=== PATIENT | female | born 1990 | race Caucasian/White ===

== ENCOUNTER 2016-10-29 19:01 | Emergency (ER) | payer OTHER ==
[~2016-10-29 19:01] MED LIST: IBUP600 PO; OXYC1SOL5 PO; PERI8.6T PO; PREN0.01 PO
[2016-10-29 20:19] LABS: BLOOD, URINE NEG (NEG); COMMENT (UR) CULT NOT INDICATED; CULTURE IF INDICATED CULT NOT INDICATED; GLUCOSE,URINE NEG (NEG); KETONE, URINE NEG (NEG); MUCUS URINE FEW /lpf (OCC); NITRITE,URINE NEG (NEG); SQUAMOUS EPITHELIAL CELL URINE <1 /hpf (0-5); URINE COLOR YELLOW (YELLW/STRAW)
--- NOTE | 2016-10-29 20:23 | PD ---
HPI Chief Complaint Abdominal cramping and spotting Travel History International Travel<30 Days: No Contact w/Intl Traveler<30Days: No Known Affected Area: No History of Present Illness HPI Denies at 20w 1d presented with abdominal cramping and spotting 2 days ago. None since. Has had one visit this . Denies urinary or bowel problems. Rh positive: A+ per records last delivery Para: 4 : 5 History Past Medical History Medical History: Denies Significant Hx Past Surgical History Surgical History: No Previous Surgery Family History Family History: Negative Social History Alcohol Use: No Tobacco Use: No Substance Abuse: No Allergies-Medications (Allergen,Severity, Reaction): Coded Allergies: No Known Allergies (Unverified , 11/24/15) Home Meds Active Scripts Oxycodone W/ Acetaminophen (Oxycodone/Acetaminophen 5-325 mg/5Ml)5 mg/325 mg Tab1 Tab PO Q4H PRN (BREAKTHROUGH PAIN) #15 TAB Prov:Helio Peter MD R3 11/25/15 Sennosides-Docusate Sodium (Cleo-Colace 8.6-50 mg)1 Tab Tab2 Tab PO Q12H PRN ( CONSTIPATION) #30 TAB Prov:Janneth Clayton MD R2 11/25/15 Ibuprofen (Motrin 600 Mg Tab)600 Mg [id number] Mg PO Q6H PRN ( CRAMPING) # 30 TAB Prov:Janneth Clayton MD R2 11/25/15 Reported Medications Multivit/Min/Fol Ac/Iron/Pren ( Vit ( Plus)) Tab1 Tab PO DAILY 11/05/14 Physical Exam AFVSS Narrative GENERAL: Well-nourished, well-developed patient. SKIN: Warm and dry. HEAD: Normocephalic and atraumatic. EYES: No scleral icterus. No injection or drainage. ENT: No nasal drainage noted. Mucous membranes pink. Airway patent. NECK: Supple, trachea midline. No JVD. CARDIOVASCULAR: Regular rate and rhythm without murmurs, gallops, or rubs. RESPIRATORY: Breath sounds equal bilaterally. No accessory muscle use. BREASTS: Bilateral exam showed no masses , no retractions, no nipple discharge. ABDOMEN/GI: Abdomen soft, non-tender, bowel sounds present, no rebound, no guarding Gravid to [-] weeks size Fundal Height: [-] GENITOURINARY: External Genitalia: intact and normal in appearance BUS glands: [-] Cervix: [-] Dilatation: [0] Effacement: [0] Station: [3] Presentation: [-] Membranes: [intact or ruptured] Uterine Contractions: [no contractions] FHT's: Category: [-] Baseline: [160s per doppler] Reactive: [-] Variability: [-] Decels: [-] EXTREMITIES: No cyanosis or edema. BACK: Nontender without obvious deformity. No CVA tenderness. NEUROLOGICAL: Awake and alert. Motor and sensory grossly within normal limits. Five out of 5 muscle strength in all muscle groups. Normal speech. Data Data Vital Signs Reviewed: Yes (AFVSS BP 117/53) Orders Urinalysis - C+S If Indicated (10/29/16 20:09) Labs Laboratory Tests Test 10/29/16 19:30 Urine Color YELLOW Urine Turbidity CLEAR Urine pH 6.0 Urine Specific [place] 1.014 Urine Protein NEG Urine Glucose (UA) NEG Urine Ketones NEG Urine Occult Blood NEG Urine Nitrite NEG Urine Bilirubin NEG Urine Urobilinogen LESS THAN 2.0 Urine Leukocyte Esterase NEG Urine RBC LESS THAN 1 Urine WBC LESS THAN 1 Urine Squamous Epithelial <1 Cells Urine Mucus FEW Microscopic Urinalysis Comment CULT NOT INDICATED MDM Interpretation(s) IUP at 20w 1d, abdominal cramping. Plan Pelvic rest until next OB visit. Return if bleeding/cramping return. All questions answered. Diagnosis Diagnosis: Primary Impression: 20 weeks gestation of Additional Impressions: Cramping affecting , antepartum Spotting affecting in second trimester Disposition: 01 DISCHARGE HOME Condition: Good Mandy Graham MD Oct 29, 2016 20:23
[2016-11-21] MEDS ORDERED: PREN1CAP7 PO (15:40)
[2016-12-03] MEDS ORDERED: METR-1 PO (10:05)
== END 2016-10-29 21:58 | disposition home or self-care (01) ==
LOC: HOBED 19:01
DX: O46.92 Antepartum hemorrhage, unspecified, second trimester (principal); Z3A.20 20 weeks gestation of pregnancy
CPT/HCPCS: 81001; 99284

== ENCOUNTER 2017-03-25 23:49 | Emergency (ER) | payer OTHER ==
[~2017-03-25 23:49] MED LIST changes: -IBUP600 PO; -OXYC1SOL5 PO; -PERI8.6T PO; -PREN0.01 PO; +PREN1CAP7 PO
[2017-03-26] MEDS ORDERED: BUTA1CAP5 PO (00:56)
--- NOTE | 2017-03-26 00:57 | PD ---
HPI Chief Complaint headache Date Seen: Mar 26, 2017 Travel History International Travel<30 Days: No Contact w/Intl Traveler<30Days: No Known Affected Area: No History of Present Illness HPI Ms. Sampson is a 26 yo at 36 weeks (JOEL 04/23 per 2nd trimester US) who presents with complaint of headache. Ms. Sampson reports that she has had a headache for the past 2 days; patient reports that it is bilateral in the area of her temples. Patient states the headaches are atypical for her; she saw evaluation since it was refractory to Tylenol which she tried at 1 PM today. Patient reports chronic vision changes but states that she needs new glasses; she does not identify new visual changes in association with headache. Patient does not report nausea, ear ringing, photophobia, fever/chills, or other association with headache. Patient does not report chest pain, shortness of breath, abdominal pain, dysuria, urinary frequency, normal bowel movements, or lower extremity swelling. Patient reports normal movement. She does not report vaginal bleeding, vaginal discharge, or loss of vaginal fluid. Patient reports unremarkable history with exception of mild iron deficiency anemia which she states does not need treatment. Patient does not report any hypertension during this gestation or prior gestations. labs not visible in EMR. Para: 4 : 5 History Past Medical History Medical History: Denies Significant Hx Obstetric History Obstetric History 4 prior full term vaginal deliveries Past Surgical History Surgical History: No Previous Surgery Family History Family History: Negative Social History Alcohol Use: No Tobacco Use: No Substance Abuse: No Allergies-Medications (Allergen,Severity, Reaction): Coded Allergies: No Known Allergies (Unverified , 12/17/16) Home Meds Active Scripts Jqsvkiegxq-Wzhldrroaavvv-Pkaexwpl 50-300-40 Mg Cap1 Cap PO Q4H PRN (HEADACHE) # 30 CAP Ref 0 Do not exceed 6 capsules/day. Prov:Lucian Saba MD R2 03/26/17 W/O Vit A W/ Fe Fumar (Citranatal [place])27-1-260 Mg Cap1 Cap PO DAILY #90 CAP Ref 0 Prov:Donta Farfan MD 11/21/16 Review of Systems General / Constitutional: No: Fever, Chills Eyes: Blurred Vision (chronic; wears corrective lenses) HENT: Headaches Cardiovascular: No: Chest Pain or Discomfort Respiratory: No: Short of Breath Gastrointestinal: No: Nausea, Vomiting, Abdominal Pain Genitourinary: No: Urgency, Dysuria Psychiatric: No: Anxiety, Depression Physical Exam BP 111/79 HR 70's RR 16-20 Narrative GENERAL: Well-nourished, well-developed patient. SKIN: Warm and dry. EYES: No scleral icterus. No injection or drainage. ENT: No nasal drainage noted. Mucous membranes pink. Airway patent. NECK: Supple, trachea midline. No JVD. CARDIOVASCULAR: Regular rate and rhythm without murmurs RESPIRATORY: Breath sounds equal bilaterally. No accessory muscle use. ABDOMEN/GI: Abdomen soft, non-tender, bowel sounds present, no rebound, no guarding Gravid EXTREMITIES: No cyanosis or edema. NEUROLOGICAL: Awake and alert. Motor and sensory grossly within normal limits. Five out of 5 muscle strength in all muscle groups. Normal speech. GENITOURINARY: External Genitalia: intact and normal in appearance Cervix: Dilatation: 1 Effacement: soft Station: -3 Presentation: V Membranes: I Uterine Contractions: occasional, irritability FHT's: Category: 1 Baseline: 120 Reactive: Y Variability: Mod Decels: None Data Data Orders Meperidine Inj (Demerol Inj) (03/26/17 01:00) Promethazine Inj (Phenergan Inj) (03/26/17 01:00) Group B Beta Strep Scrn (Gbs) (03/26/17 00:50) Vital Signs (Adult) .ON ADMISSION (03/26/17 00:50) ^ Labor Status (03/26/17 00:50) MDM Medical Record Reviewed: Yes Narrative Course / MDM Ms. Sampson is a 26 yo at 36 weeks (JOEL 04/23 per 2nd trimester US) who presents with complaint of headache -Normotensive (BP 111/49) -Category 1 rhythm -Irregular contractions/irritability -Cervix 1 cm dilated -Complaint of headache; no concerning features Plan: -Continue to monitor EFM/CTG -We'll give Demerol/Phenergan for pain -GBS obtained Updated assessment/plan: Patient continued to have reassuring rhythm and lack of regular contractions. Patient remained normotensive. No concerning etiology identified. Patient deemed stable for discharge home and follow-up with [facility]; will prescribe patient Fioricet on discharge to use when necessary for headaches. Patient will follow-up in 2-3 days with [facility] and can return to ED with worsening symptoms or presence of new concerning symptoms Diagnosis Diagnosis: Primary Impression: Headache Additional Impression: Disposition: 01 DISCHARGE HOME Condition: Stable Scripts Memozoiiql-Lztqtbgknldob-Kmptygdf 50-300-40 Mg Cap1 Cap PO Q4H PRN (HEADACHE) # 30 CAP Ref 0 Do not exceed 6 capsules/day. Prov:Lucian Saba MD R2 03/26/17 Referrals: [facility] 1 week Patient Instructions: General Instructions, Early Labor Signs (ED), Movement (ED) Departure Forms: Tests/Procedures, Work Release Enter return to work date: Mar 28, 2017 Lucian Saba MD R2 Mar 26, 2017 00:57
[2017-03-26] MEDS ORDERED: MEPERIDINE HCL 50 MG/ML VIAL IM ONE (01:00)
[2017-03-26] MEDS ORDERED: PROMETHAZINE INJ 25 MG/ML VIAL IM ONE (01:00)
== END 2017-03-26 03:00 | disposition home or self-care (01) ==
LOC: HOBED 23:49
DX: O26.892 Other specified pregnancy related conditions, second trimester (principal); R51 Headache; O99.013 Anemia complicating pregnancy, third trimester; Z3A.36 36 weeks gestation of pregnancy; Z79.899 Other long term (current) drug therapy
CPT/HCPCS: 87081; 96372; 99284; J2175; J2550

== ENCOUNTER 2017-04-12 23:25 | Emergency (ER) | payer OTHER ==
[~2017-04-12 23:25] MED LIST changes: +BUTA1CAP5 PO
[2017-04-12 23:44] VITALS: BP 137/67; PULSE 77
--- NOTE | 2017-04-13 | PD ---
HPI Chief Complaint 38 weeks and 3 days gestation Contractions Date Seen: Apr 12, 2017 Time Seen: 23:40 Travel History International Travel<30 Days: No Contact w/Intl Traveler<30Days: No Known Affected Area: No History of Present Illness HPI Pt is a 26 yo here with complaints of contractions since this afternoon. Pt had initial care at local clinic and then moved away to [place]. Pt states EDC is 04-23-2017. She has been back from [place] for past month, but not receiving care. Pt states she was seen on OB ER here 2 weeks ago, and had labs and GBS done Pt states she has been dasha this afternoon, increasing frequency and intensity She reports leaking fluid No vaginal bleeding Active movements. Para: 4 : 5 History Past Medical History Narrative Medical h/o migraine headaches Past Surgical History Surgical History: No Previous Surgery Social History Alcohol Use: No Tobacco Use: No Substance Abuse: No Allergies-Medications (Allergen,Severity, Reaction): Coded Allergies: No Known Allergies (Unverified , 12/17/16) Home Meds Active Scripts Yutbgtfwhr-Gxyjanmjpmmpg-Vywkborf 50-300-40 Mg Cap1 Cap PO Q4H PRN (HEADACHE) # 30 CAP Ref 0 Do not exceed 6 capsules/day. Prov:Lucian Saba MD, R3 03/26/17 W/O Vit A W/ Fe Fumar (Citranatal [place])27-1-260 Mg Cap1 Cap PO DAILY #90 CAP Ref 0 Prov:Donta Farfan MD 11/21/16 Review of Systems Except as stated in HPI: all other systems reviewed are Neg Physical Exam Narrative GENERAL: Well-nourished, well-developed patient. SKIN: Warm and dry. HEAD: Normocephalic and atraumatic. EYES: No scleral icterus. No injection or drainage. ENT: No nasal drainage noted. Mucous membranes pink. Airway patent. NECK: Supple, trachea midline. No JVD. CARDIOVASCULAR: Regular rate and rhythm without murmurs, gallops, or rubs. RESPIRATORY: Breath sounds equal bilaterally. No accessory muscle use. BREASTS: Bilateral exam showed no masses , no retractions, no nipple discharge. ABDOMEN/GI: Abdomen soft, non-tender, bowel sounds present, no rebound, no guarding Gravid to [38.3] weeks size Fundal Height: [40] GENITOURINARY: External Genitalia: intact and normal in appearance BUS glands: [-] Cervix: soft] Dilatation: [2cm] Effacement: [50%] Station: [-ballotable] Presentation: [-vertex] Membranes: [intact or ruptured] Uterine Contractions: [irregular] FHT's: Category: [cat 1 Baseline: Reactive: [-] Variability: [-] Decels: [-] EXTREMITIES: No cyanosis or edema. BACK: Nontender without obvious deformity. No CVA tenderness. NEUROLOGICAL: Awake and alert. Motor and sensory grossly within normal limits. Five out of 5 muscle strength in all muscle groups. Normal speech. Data Data Vital Signs Reviewed: Yes MDM Interpretation(s) Amnisure NEGATIVE Cervical exam unchanged after re-check in 1 hour Diagnosis Diagnosis: Primary Impression: with 38 completed weeks gestation Additional Impression: False labor after 37 completed weeks of gestation Disposition: 01 DISCHARGE HOME Condition: Stable Marc Block MD Apr 13, 2017 00:00
== END 2017-04-13 01:03 | disposition home or self-care (01) ==
LOC: HOBED 23:25
DX: O47.1 False labor at or after 37 completed weeks of gestation (principal); Z3A.38 38 weeks gestation of pregnancy
CPT/HCPCS: 59025

== ENCOUNTER 2017-04-14 22:54 | Inpatient (IN) | payer OTHER ==
[~2017-04-14] VITALS: Ht 162.6 cm; Wt 79.4 kg
[2017-04-14] MEDS ORDERED: LACTATED RINGER'S 1000 ML INJ 1,000 ML IV PRN (23:06)
[2017-04-14] MEDS ORDERED: LACTATED RINGER'S 1000 ML INJ 1,000 ML IV SCH (23:06)
--- NOTE | 2017-04-14 23:06 | PD ---
HPI Chief Complaint contractions and rupture of membranes Date Seen: Apr 14, 2017 Time Seen: 23:03 Travel History International Travel<30 Days: No Contact w/Intl Traveler<30Days: No Known Affected Area: No History of Present Illness HPI 26-year-old at 38 weeks and 5 days comes in complaining of spontaneous rupture membranes or possibly 30 minutes ago associated with contractions. Patient has not seen an OB in several weeks but states at around 20 weeks she had seen [facility] prior to moving to [place] for the remainder the . Patient states that she has had a negative group B strep. No complications Para: 4 : 5 History Past Medical History Medical History: Denies Significant Hx Obstetric History Obstetric History Spontaneous vaginal delivery 4 Past Surgical History Surgical History: No Previous Surgery Family History Family History: Negative Social History Alcohol Use: No Tobacco Use: No Substance Abuse: No Allergies-Medications (Allergen,Severity, Reaction): Coded Allergies: No Known Allergies (Unverified , 12/17/16) Home Meds Active Scripts Uvhpsoayfw-Vezdbztxsnhtb-Gwwamfim 50-300-40 Mg Cap1 Cap PO Q4H PRN (HEADACHE) # 30 CAP Ref 0 Do not exceed 6 capsules/day. Prov:Lucian Saba MD, R3 03/26/17 W/O Vit A W/ Fe Fumar (Citranatal [place])27-1-260 Mg Cap1 Cap PO DAILY #90 CAP Ref 0 Prov:Donta Farfan MD 11/21/16 Review of Systems Except as stated in HPI: all other systems reviewed are Neg Physical Exam Narrative GENERAL: Well-nourished, well-developed patient. SKIN: Warm and dry. HEAD: Normocephalic and atraumatic. EYES: No scleral icterus. No injection or drainage. ENT: No nasal drainage noted. Mucous membranes pink. Airway patent. NECK: Supple, trachea midline. No JVD. CARDIOVASCULAR: Regular rate and rhythm without murmurs, gallops, or rubs. RESPIRATORY: Breath sounds equal bilaterally. No accessory muscle use. ABDOMEN/GI: Abdomen soft, non-tender, bowel sounds present, no rebound, no guarding Gravid to [-38] weeks size Fundal Height: [-] GENITOURINARY: External Genitalia: intact and normal in appearance BUS glands: [-Normal] Cervix: [-Mid position] Dilatation: [5-] Effacement: [-90] Station: [--1] Presentation: [-Vertex] Membranes: [ruptured with moderate meconium] Uterine Contractions: [-Every 5] FHT's: Category: [-1] Baseline: [-140] Reactive: [Moderate-] Variability: [-Moderate] Decels: [-Absent] EXTREMITIES: No cyanosis or edema. BACK: Nontender without obvious deformity. No CVA tenderness. NEUROLOGICAL: Awake and alert. Motor and sensory grossly within normal limits. Five out of 5 muscle strength in all muscle groups. Normal speech. MDM Medical Record Reviewed: Yes Plan 26-year-old who is at 38-39 weeks gestation Patient labor with moderate meconium Patient states that she is group B strep negative Diagnosis Diagnosis: Primary Impression: with 38 completed weeks gestation Additional Impression: Rupture of membranes with meconium present Deb Yanez MD Apr 14, 2017 23:06
[2017-04-14] MEDS ORDERED: SODIUM CHLORID 0.9% 500 ML INJ 500 ML IV PRN (23:15)
[2017-04-14] MEDS ORDERED: CITRIC ACID-SODIUM CITRATE LIQ 30 ML UDC PO SCH (23:15)
[2017-04-14] MEDS ORDERED: LIDOCAINE HCL 1% 50 ML VIAL I-DERMAL PRN (23:15)
[2017-04-14] MEDS ORDERED: OXYTOCIN 30 UNITS-500ML PREMIX 500 ML IV ONE (23:15)
[2017-04-14] MEDS ORDERED: MINERAL OIL 10 ML VIAL TOPICAL PRN (23:15)
[2017-04-14] MEDS ORDERED: LIDOCAINE HCL 1% 50 ML VIAL INFIL PRN (23:15)
[2017-04-14 23:26] VITALS: BP 143/89; PULSE 122
[2017-04-14] MEDS ORDERED: SODIUM CHLOR 0.9% 1000 ML INJ 1,000 ML IV PRN (23:26)
[2017-04-14 23:36] VITALS: BP 138/67; PULSE 86
--- NOTE | 2017-04-14 23:37 | HHI.HP ---
HPI Date Seen: Apr 14, 2017 Time Seen: 23:15 (Tae Sherwood MD R2) Travel History International Travel<30 Days: No Contact w/Intl Traveler<30Days: No Known Affected Area: No (Tae Sherwood MD R2) History of Present Illness HPI 26-year-old at 38/5 weeks gestation presenting for spontaneous rupture of membranes and contractions. She had leakage of fluid this evening which was clear in association with contractions, prompting her to seek evaluation OB ER. Denies vaginal bleeding. Endorses movement. Denies chest pain, shortness of breath, dysuria, abdominal pain. Endorses a headache earlier today with some spotty vision, but this resolved spontaneously. No history of preeclampsia. ( Tae Sherwood MD R2) History Past Medical History Medical History: Denies Significant Hx (Tae Sherwood MD R2) Obstetric History Obstetric History Vaginal delivery x4 (Tae Sherwood MD R2) Past Surgical History Surgical History: No Previous Surgery (Tae Sherwood MD R2) Family History Family History: Negative (Tae Sherwood MD R2) Social History Alcohol Use: No Tobacco Use: No Substance Abuse: No (Tae Sherwood MD R2) Allergies-Medications (Allergen,Severity, Reaction): Coded Allergies: No Known Allergies (Unverified , 12/17/16) Home Meds Active Scripts W/O Vit A W/ Fe Fumar (Citranatal [place])27-1-260 Mg Cap1 Cap PO DAILY #90 CAP Ref 0 Prov:Donta Farfan MD 11/21/16 Discontinued Scripts Rwvxrlearf-Ryklnirwkbhiy-Osjzbyvv 50-300-40 Mg Cap1 Cap PO Q4H PRN (HEADACHE) # 30 CAP Ref 0 Do not exceed 6 capsules/day. Prov:Lucian Saba MD, R3 03/26/17 Review of Systems Except as stated in HPI: all other systems reviewed are Neg (Tae Sherwood MD R2) Physical Exam Narrative GENERAL: Well-nourished, well-developed patient. SKIN: Warm and dry. HEAD: Normocephalic and atraumatic. EYES: No scleral icterus. No injection or drainage. ENT: No nasal drainage noted. Mucous membranes pink. Airway patent. CARDIOVASCULAR: Regular rate and rhythm without murmurs, gallops, or rubs. RESPIRATORY: Breath sounds equal bilaterally. No accessory muscle use. ABDOMEN/GI: Abdomen soft, non-tender, no rebound, no guarding GENITOURINARY: Cervix: midposition Dilation: 5 cm Effacement: 90 Presentation: -2 Membranes: SROM @ 2200 with clear fluid Contractions: regular every 3-5 mins FHT's: Category: 1 Baseline: 120 Reactive: Y Variability: moderate Decels: intermittent variable decelerations, not recurrent EXTREMITIES: No cyanosis or edema. NEUROLOGICAL: Awake and alert. Motor and sensory grossly within normal limits. Normal speech. (Tae Sherwood MD R2) Data Data Orders Ob (2e) Additional Admit Info (04/14/17 23:04) Admit To Inpatient (04/14/17 ) Vital Signs (Adult) .Per protocol (04/14/17 23:06) Heart (04/14/17 23:06) Amnioinfusion (04/14/17 23:) Urinary Catheter Management .ONCE (04/14/17 23:06) Diet Liquid (04/15/17 Breakfast) Lactated Ringer's 1000 Ml Inj (Lr 1000 M (04/14/17 23:06) Lactated Ringer's 1000 Ml Inj (Lr 1000 M (04/14/17 23:06) Sodium Chlorid 0.9% 500 Ml Inj (Ns 500 M (04/14/17 23:15) Sodium Chlor 0.9% 1000 Ml Inj (Ns 1000 M (04/14/17 23:26) Lidocaine 1% Inj (50 Ml) (Xylocaine 1% I (04/14/17 23:15) Citric Acid-Sodium Citrate Liq (Bicitra (04/14/17 23:15) Fentanyl Inj (Fentanyl Inj) (04/14/17 23:15) Fentanyl Inj (Fentanyl Inj) (04/14/17 23:15) Complete Blood Count With Diff (04/14/17 23:06) Hold Clot (04/14/17 23:06) Abo/Rh Blood Type (04/14/17 23:) Rapid Plasma Regin (Rpr) W Ttr (04/14/17 23:06) Resp Oxygen Non Rebreathe Mask (04/14/17 ) ^ Epidural / Intrathecal Infus (04/14/17 23:06) Oxytocin 30 Units-500ml Premix (Pitocin (04/14/17 23:15) Lidocaine 1% Inj (50 Ml) (Xylocaine 1% I (04/14/17 23:15) Light Mineral Oil (Muri-Lube Oil) (04/14/17 23:15) Inpatient Certification (04/14/17 ) (Tae Sherwood MD R2) Assessment/Plan Problem List: (1) with 38 completed weeks gestation Assessment and Plan 26-year-old at 38/5 weeks gestation presenting with SROM in active labor #1 IUP Category 1 tracing, reassuring Continuous monitoring #2 GBS negative No need for antepartum antibiotic prophylaxis #3 spontaneous rupture of membranes #4 active labor Membranes ruptured, spontaneous contractions, cervical change Admit to labor and delivery Routine labor care Epidural for pain control Anticipate delivery (Tae Sherwood MD R2) Collaborating Comments Care was supervised with resident. (Deb Yanez MD) Tae Sherwood MD R2 Apr 14, 2017 23:37 Deb Yanez MD Apr 16, 2017 10:56
[2017-04-14 23:42] LABS: AUTOMATED NEUTROPHIL # 12.8 TH/MM3 (1.8-7.7); BASOPHIL % 0.2 % (0.0-2.0); EOSINOPHIL # 0.4 TH/MM3 (0-0.4); EOSINOPHIL % 2.2 % (0.0-4.0); HEMATOCRIT 35.4 % (35.0-46.0); HEMO FLAGS DIFF FINAL; LYMPH % 18.4 % (9.0-44.0); LYMPHOCYTE # 3.2 TH/MM3 (1.0-4.8); MEAN CELL VOLUME 87.4 FL (80.0-100.0); MEAN CORPUSCULAR HEMOGLOBIN 30.8 PG (27.0-34.0); MEAN CORPUSCULAR HGB CONC 35.2 % (32.0-36.0); MONO % 6.9 % (0.0-8.0); NEUT % 72.3 % (16.0-70.0); PLATELET COUNT 215 TH/MM3 (150-450); RED BLOOD COUNT 4.05 MIL/MM3 (4.00-5.30); RED CELL DISTRIBUTION WIDTH 12.8 % (11.6-17.2); WHITE BLOOD COUNT 17.6 TH/MM3 (4.0-11.0)
[2017-04-15] VITALS (10 sets, daily range): BP systolic 123–140; BP diastolic 50–75; PULSE 63–146; RESP 18–20; TEMP 98.1–99.3
[2017-04-15] MEDS ORDERED: ONDANSETRON ODT 4 MG TAB PO PRN (01:30)
[2017-04-15] MEDS ORDERED: WITCH HAZEL 50%/GLYCERIN 12.5% 40 PAD JAR TOPICAL PRN (01:30)
[2017-04-15] MEDS ORDERED: oxyCODONE/ACETAMINOPHEN 5 MG/325 MG TAB PO PRN (01:30)
[2017-04-15] MEDS ORDERED: ACETAMINOPHEN 325 MG TAB PO PRN (01:30)
[2017-04-15] MEDS ORDERED: ZOLPIDEM TARTRATE 5 MG TAB PO PRN (01:30)
[2017-04-15] MEDS ORDERED: BENZOCAINE 20% TOPICAL SPRAY 60 ML CAN TOPICAL PRN (01:30)
[2017-04-15] MEDS: IBUPROFEN 600 MG TAB PO PRN ×2 (01:30→13:03)
[2017-04-15] MEDS ORDERED: ALUMINUM/MAGNESIUM/SIMETH 30 ML CUP PO PRN (01:30)
[2017-04-15] MEDS ORDERED: DISCONTINUE ALL PREVIOUS ORDERS ONE (01:30)
[2017-04-15] MEDS ORDERED: oxyCODONE/ACETAMINOPHEN 5 MG/325 MG 2 TABS PO PRN (01:30)
[2017-04-15] MEDS ORDERED: OXYTOCIN 30 UNITS-500ML PREMIX 500 ML IV SCH (01:30)
[2017-04-15] MEDS ORDERED: DOCUSATE SODIUM 50 MG/SENNA 8.6 MG TAB PO PRN (01:30)
--- NOTE | 2017-04-15 01:34 | PD.OB.DELI ---
Delivery Date: Apr 15, 2017 Anesthesia: None Episiotomy: None Vaginal Delivery: Normal Presentation: Occiput anterior Nuchal Cord: None Delayed cord clamping (45 sec): Yes Infant: Male One Minute : 9 Five Minute : 9 Weight: 2725 grams Placenta: Spontaneous delivery Laceration: No lacerations Estimated blood loss: 500 mL Additional Information Supervised by Dr. Yanez and Dr. Sherwood Delivered by Dr. Roque (Luc Roque MD R1) Collaborating MD Comments Deliver was directly supervised by me. (Deb Yanez MD) Luc Roque MD R1 Apr 15, 2017 01:34 Deb Yanez MD Apr 16, 2017 10:58
--- NOTE | 2017-04-15 07:40 | HHI.OB ---
Subjective Remarks day # 1, AFVSS overnight. Decreased lochia. Denies dysuria. No breast tenderness. She is feeding the baby via breast and formula. Appetite good. No nausea or vomiting. Positive flatus/bowel movement. Ambulating well. Denies calf pain or shortness of breath. Otherwise, she is doing well this morning and has no other complaints. Objective Vitals/I&O Vital Signs Date Time Temp Pulse Resp B/P Pulse Ox O2 Delivery O2 Flow Rate FiO2 04/15/17 02:15 64 20 125/66 04/15/17 02:15 98.6 04/15/17 01:16 77 127/65 04/15/17 01:13 99.3 04/15/17 01:01 63 138/72 04/15/17 00:46 72 140/73 04/15/17 00:31 85 134/70 04/15/17 00:16 72 04/15/17 00:01 146 123/50 04/14/17 23:36 86 138/67 04/14/17 23:26 122 143/89 Objective Remarks GENERAL: Well-nourished, well-developed patient. CARDIOVASCULAR: Regular rate and rhythm without murmurs, gallops, or rubs. RESPIRATORY: Breath sounds equal bilaterally. No accessory muscle use. ABDOMEN/GI: Abdomen soft, non-tender. Fundus: Firm, non-tender at umbilicus. GENITOURINARY: Light to moderate bleeding. EXTREMITIES: No cyanosis or edema, non-tender, without signs of DVT. Medications and IVs Current Medications Medications (Trade) Dose Ordered Sig/Bryant Route Start Time Stop Time Status Last Admin (Tylenol) 650 mg Q4H PRN PO 04/15/17 01:30 04/15/17 06:14 (Motrin) 600 mg Q6H PRN PO 04/15/17 01:30 04/15/17 01:30 (Percocet 5-325 Mg) 1 tab Q4H PRN PO 04/15/17 01:30 (Percocet 5-325 Mg) 2 tab Q4H PRN PO 04/15/17 01:30 (Americaine 20% Top Spr) 1 spray Q4H PRN TOPICAL 04/15/17 01:30 (Tucks Pads) 1 applic Q6H PRN TOPICAL 04/15/17 01:30 (Cleo-Colace) 2 tab Q12H PRN PO 04/15/17 01:30 04/15/17 06:14 (Ambien) 5 mg HS PRN PO 04/15/17 01:30 (M-M-R Ii Inj) 0.5 ml ONCE ONCE SQ 04/15/17 16:00 04/15/17 16:01 (Boostrix Inj) 0.5 ml ONCE ONCE IM 04/15/17 16:00 04/15/17 16:01 (Mag-Al Plus Susp Liq) 15 ml Q8H PRN PO 04/15/17 01:30 (Zofran Odt) 4 mg Q6H PRN PO 04/15/17 01:30 Assessment/Plan Problem List: (1) with 38 completed weeks gestation Assessment and Plan 26 y/o female who is PPD# 0 s/p . -Continue routine care. -Percocet and Motrin PRN pain. -Encouraged OOB. Advised pelvic rest for 6 wks. -Re: ctrl, she would like Depo-Provera. -D/c in 1-[address] Yanez and Dr. Terry R1 Fatou Arriola MD, R3 Apr 15, 2017 07:40
[2017-04-15 10:41] LABS: RAPID PLASMA REAGIN SCREEN NON-REACTIVE (NON-REACTVE)
[2017-04-15] MEDS ORDERED: MEASLES, MUMPS, RUBELLA VACCINE 0.5 ML VIAL SQ ONE (16:00)
[2017-04-15] MEDS ORDERED: DIPHTH/TETANUS/ACEL PERTUSSIS (BOOSTER) 0.5 ML VIAL/PFS IM ONE (16:00)
[2017-04-16 08:03] VITALS: BP 120/65; PULSE 61; RESP 16; TEMP 98.2
[2017-04-16] MEDS ORDERED: medroxyPROGESTERone ACETATE SUSP 150 MG/ML SYRINGE IM ONE (09:00)
--- NOTE | 2017-04-16 09:17 | HHI.OB ---
Subjective Post Day: 1 Remarks day # 1, AFVSS overnight. Decreased lochia. Denies dysuria. No breast tenderness. She is feeding the baby via formula and breast. Appetite good. No nausea or vomiting. Positive flatus/bowel movement. Ambulating well. Denies calf pain or shortness of breath. Otherwise, she is doing well this morning and has no other complaints. Objective Vitals/I&O Vital Signs Date Time Temp Pulse Resp B/P Pulse Ox O2 Delivery O2 Flow Rate FiO2 04/16/17 08:03 98.2 61 16 120/65 04/15/17 19:50 130/70 04/15/17 19:50 98.5 67 20 Objective Remarks GENERAL: Well-nourished, well-developed patient. CARDIOVASCULAR: Regular rate and rhythm without murmurs, gallops, or rubs. RESPIRATORY: Breath sounds equal bilaterally. No accessory muscle use. ABDOMEN/GI: Abdomen soft, non-tender. Fundus: Firm, non-tender at umbilicus. GENITOURINARY: Light to moderate bleeding. EXTREMITIES: No cyanosis or edema, non-tender, without signs of DVT. Medications and IVs Current Medications Medications (Trade) Dose Ordered Sig/Bryant Route Start Time Stop Time Status Last Admin (Tylenol) 650 mg Q4H PRN PO 04/15/17 01:30 04/15/17 06:14 (Motrin) 600 mg Q6H PRN PO 04/15/17 01:30 04/15/17 13:03 (Percocet 5-325 Mg) 1 tab Q4H PRN PO 04/15/17 01:30 (Percocet 5-325 Mg) 2 tab Q4H PRN PO 04/15/17 01:30 (Americaine 20% Top Spr) 1 spray Q4H PRN TOPICAL 04/15/17 01:30 (Tucks Pads) 1 applic Q6H PRN TOPICAL 04/15/17 01:30 (Cleo-Colace) 2 tab Q12H PRN PO 04/15/17 01:30 04/15/17 06:14 (Ambien) 5 mg HS PRN PO 04/15/17 01:30 (Mag-Al Plus Susp Liq) 15 ml Q8H PRN PO 04/15/17 01:30 (Zofran Odt) 4 mg Q6H PRN PO 04/15/17 01:30 Assessment/Plan Problem List: (1) with 38 completed weeks gestation Assessment and Plan 26 y/o female who is PPD# 1 s/p . -Continue routine care. -Percocet and Motrin PRN pain. -Encouraged OOB. Advised pelvic rest for 6 wks. -Re: ctrl, she would like Depo-Provera. -D/c today or tomorrow dw Dr. Cerda and Viraj Taylor MD R1 Apr 16, 2017 09:17
[2017-04-16] MEDS ORDERED: PERI8.6T PO (11:46)
[2017-04-16] MEDS ORDERED: IBUP-232 PO (11:46)
== END 2017-04-16 13:30 | disposition home or self-care (01) | DRG 775 ==
LOC: HOBED 22:54 → H2EB 23:07 → H1EA 04-15 01:32
PROVIDERS: ADMIT Obstetrics & Gynecology Obstetrics; ATTEND Obstetrics & Gynecology Obstetrics
PROC: 10E0XZZ Delivery of Products of Conception, External Approach (ICD-10-PCS; principal; 2017-04-15)
DX: O80 Encounter for full-term uncomplicated delivery (principal); Z37.0 Single live birth; Z3A.38 38 weeks gestation of pregnancy
CPT/HCPCS: 85025; 86592; 86900; 86901; J1050; J2590; J3010; J7120